=== PATIENT | female | born 1975 | race Caucasian/White ===

== ENCOUNTER 2023-06-03 21:09 | Observation (INO) | payer OTHER ==
[2023-06-03 22:15] LABS: BASO % 1.2 % (0-2.0); EOS % 1.7 % (0-4.5); HEMATOCRIT 37.1 % (32.4-45.2); LYMPH % 34.5 % (8-40); MCH 27.5 pg (25.7-33.7); MCHC 35.1 g/dl (32.0-36.0); MEAN CELL VOLUME 78.5 fl (80-96); MEAN PLT VOLUME 9.1 fl (7.5-11.1); MONO % 11.5 % (3.8-10.2); NEUT % 51.1 % (42.8-82.8); PLATELET COUNT 213 10^3/uL (134-434); RBC 4.73 M/mm3 (3.60-5.2); RDW 14.9 % (11.6-15.6); WHITE BLOOD COUNT 6.1 K/mm3 (4.0-10.0)
[2023-06-03 22:21] LABS: INR 0.95 (0.83-1.09)
[2023-06-03 22:21] LABS: URINE APPEARANCE CLEAR; URINE BILIRUBIN NEGATIVE (NEGATIVE); URINE COLOR YELLOW; URINE GLUCOSE (UA) NEGATIVE (NEGATIVE); URINE KETONE NEGATIVE (NEGATIVE); URINE LEUK ESTERASE NEGATIVE (NEGATIVE); URINE NITRITE NEGATIVE (NEGATIVE); URINE PROTEIN NEGATIVE (NEGATIVE); URINE UROBILINOGEN 0.2 mg/dL (0.2-1.0)
[2023-06-03 22:23] LABS: ACTIVATED PTT 32.4 SECONDS (25.2-36.5)
[2023-06-03] MEDS ORDERED: METOCLOPRAMIDE HCL INJECTION 10 MG/2 ML VIAL IVPB ONE (22:32)
[2023-06-03] MEDS ORDERED: ACETAMINOPHEN 1000 MG/100 ML BAG IVPB ONE (22:32)
[2023-06-03] MEDS ORDERED: METOCLOPRAMIDE HCL INJECTION 10 MG/2 ML VIAL ONE (22:36)
[2023-06-03] MEDS ORDERED: ACETAMINOPHEN INJECTION 100 ML IVPB ONE (22:36)
[2023-06-03 22:40] LABS: ALBUMIN 3.4 g/dl (3.4-5.0); BLOOD UREA NITROGEN 15.6 mg/dL (7-18); CALCIUM 8.5 mg/dL (8.5-10.1); MAGNESIUM 1.9 mg/dL (1.8-2.4)
[2023-06-03 22:43] LABS: CREATININE 0.8 mg/dL (0.55-1.3)
[2023-06-03 22:45] LABS: BILIRUBIN,TOTAL 0.2 mg/dL (0.2-1); TOT PROT 6.8 g/dl (6.4-8.2)
[2023-06-03 22:48] LABS: N-TERMINAL BNP 45.7 pg/ml (5-125)
[2023-06-04] MEDS ORDERED: ONDANSETRON 4 MG/2 ML VIAL IVPUSH PRN (02:01)
[2023-06-04] MEDS ORDERED: amLODIPine BESYLATE 5 MG TABLET (FP) PO SCH ×3 (02:08→22:00)
[2023-06-04] MEDS ORDERED: LOSARTAN POTASSIUM 50 MG TABLET PO SCH ×2 (02:09→08:00)
[2023-06-04] MEDS ORDERED: HYDROCHLOROTHIAZIDE 12.5 MG CAPSULE (FP) PO SCH ×2 (02:10→08:00)
[2023-06-04] MEDS ORDERED: LOSARTAN POTASSIUM 50 MG TABLET PO ONE (02:25)
[2023-06-04] MEDS ORDERED: amLODIPine BESYLATE 5 MG TABLET (FP) PO ONE (02:25)
[2023-06-04] MEDS ORDERED: HYDROCHLOROTHIAZIDE 12.5 MG CAPSULE (FP) PO ONE (02:25)
[2023-06-04 04:01] VITALS: BMI 28.7
[2023-06-04 07:48] LABS: HEMATOCRIT 36.5 % (32.4-45.2); HEMOGLOBIN 12.8 GM/dL (10.7-15.3); MCH 28.1 pg (25.7-33.7); MCHC 35.2 g/dl (32.0-36.0); MEAN CELL VOLUME 79.7 fl (80-96); MEAN PLT VOLUME 9.5 fl (7.5-11.1); PLATELET COUNT 197 10^3/uL (134-434); RBC 4.57 M/mm3 (3.60-5.2); RDW 15.1 % (11.6-15.6); WHITE BLOOD COUNT 4.2 K/mm3 (4.0-10.0)
[2023-06-04 08:11] LABS: POTASSIUM 3.9 mmol/L (3.5-5.1)
[2023-06-04 08:32] LABS: CREATININE 0.6 mg/dL (0.55-1.3); PHOSPHOROUS 3.6 mg/dL (2.5-4.9)
[2023-06-04 08:56] LABS: METHADONE, UR NEGATIVE (NEGATIVE); OPIATES, URI NEGATIVE (NEGATIVE); PHENCYCLIDINE,URINE NEGATIVE (NEGATIVE); URINE AMPHETAMINES NEGATIVE (NEGATIVE); URINE BARBITURATES NEGATIVE (NEGATIVE)
[2023-06-04 08:57] LABS: COCAINE, UR NEGATIVE (NEGATIVE)
[2023-06-04 08:58] LABS: URINE BENZODIAZEPINES NEGATIVE (NEGATIVE)
[2023-06-04] MEDS ORDERED: ENOXAPARIN NA (PORCINE) 40 MG/0.4 ML DISP.SYRIN SQ SCH (10:00)
[2023-06-04 10:48] VITALS: BP 154/84; PULSE 66; RESP 18; TEMP 98.8
== END 2023-06-04 13:30 | disposition home or self-care (01) ==
LOC: JER 21:09 → JERBED 06-04 00:06 → UNDOADMOB 06-04 00:06 → OBSVTOIN 06-04 02:08 → INTOOBSV 06-04 02:08 → JERBED 06-04 02:57 → J4W 06-04 03:05 → JERBED 06-04 03:05 → J4W 06-04 10:11
PROVIDERS: ADMIT Internal Medicine; ATTEND Internal Medicine
PROC: 3E033NZ Introduction of Analgesics, Hypnotics, Sedatives into Peripheral Vein, Percutaneous Approach (ICD-10-PCS; principal; 2023-06-04)
PROC: 3E023GC Introduction of Other Therapeutic Substance into Muscle, Percutaneous Approach (ICD-10-PCS; 2023-06-04)
PROC: 3E033GC Introduction of Other Therapeutic Substance into Peripheral Vein, Percutaneous Approach (ICD-10-PCS; 2023-06-04)
DX: I10 Essential (primary) hypertension (principal); R51.9 Headache, unspecified; R55 Syncope and collapse; Z91.018 Allergy to other foods; Z88.8 Allergy status to other drugs, medicaments and biological substances; Z91.030 Bee allergy status
CPT/HCPCS: 36415; 70450-TC; 71045-TC-FY; 80048; 80053; 80307; 81003; 82962; 83735; 83880; 84100; 84484; 84703; 85025; 85027; 85610; 85730; 86850; 86900; 86901; 93005; 93010; 93306-TC; 99285-25; G0378

== ENCOUNTER 2025-01-06 21:48 | Emergency (ER) | payer OTHER ==
[2025-01-06 22:02] VITALS: BP 153/98; PULSE 94; RESP 18; TEMP 98.1; BMI 26.9
== END 2025-01-06 22:57 | disposition left against medical advice (07) ==
LOC: JERFT 21:48 → JER 21:48
DX: Z53.21 Procedure and treatment not carried out due to patient leaving prior to being seen by health care provider (principal)
CPT/HCPCS: 99281-25